=== PATIENT | male | born 1970 | race African-American/Black ===

== ENCOUNTER 2021-02-17 21:52 | Emergency (ER) | payer OTHER ==
[~2021-02-17] VITALS: Ht 180.3 cm; Wt 95.0 kg
[~2021-02-17 21:52] MED LIST: HYDR50TA PO
[2021-02-17] MEDS ORDERED: ATENOLOL 50 MG TABLET PO ONE (22:15)
[2021-02-17] MEDS ORDERED: AMLO10TA4 MT (22:16)
[2021-02-17] MEDS ORDERED: ATEN50TA MT (22:16)
[2021-02-17 22:52] VITALS: BP 152/84
== END 2021-02-17 23:37 | disposition home or self-care (01) ==
LOC: ER 21:52
DX: Z76.0 Encounter for issue of repeat prescription (principal); I10 Essential (primary) hypertension
CPT/HCPCS: 99283